=== PATIENT | female | born 1940 | race Native Hawaiian/Other Pacific Islander ===

== ENCOUNTER 2018-04-19 08:45 | Emergency (ER) | payer OTHER, BC ==
[~2018-04-19] VITALS: Ht 157.5 cm; Wt 50.8 kg
[2018-04-19 08:57] VITALS: TEMP 98.2
[2018-04-19 09:50] LABS: PLATELET COUNT 225 K/uL (152-353)
[2018-04-19 11:00] VITALS: BP 120/60
== END 2018-04-19 11:00 | disposition home or self-care (01) ==
LOC: ED 08:45
PROVIDERS: Allergy & Immunology
DX: K59.09 Other constipation (principal)
CPT/HCPCS: 80053; 85027; 99283

== ENCOUNTER 2019-12-30 12:51 | Outpatient (CLI) | payer OTHER, BC | END 2019-12-30 23:25 | disposition home or self-care (01) | LOC: LAB 12:51 | DX: R30.0 Dysuria (principal) | CPT/HCPCS: 81000; 87088 ==